=== PATIENT | female | born 1960 | race Caucasian/White ===

== ENCOUNTER 2016-08-29 07:07 | Day surgery (SDC) | payer BC ==
[2016-08-29 09:11] VITALS: TEMP 98.1
[2016-08-29 09:28] VITALS: RESP 20
[2016-08-29 09:48] VITALS: BP 108/69; PULSE 71; O2SAT 99
== END 2016-08-29 09:54 | disposition home or self-care (01) ==
LOC: SURG 07:07
PROVIDERS: ATTEND Internal Medicine Gastroenterology
DX: Z12.11 Encounter for screening for malignant neoplasm of colon (principal); Z80.0 Family history of malignant neoplasm of digestive organs; K57.30 Diverticulosis of large intestine without perforation or abscess without bleeding; K64.8 Other hemorrhoids; K62.1 Rectal polyp
CPT/HCPCS: 45380; 82962; 99001; J2001; J2704

== ENCOUNTER 2017-07-19 13:53 | Outpatient (CLI) | payer BC ==
[2016-08-29 09:48] VITALS: O2SAT 99
== END 2017-07-19 13:54 | disposition home or self-care (01) ==
LOC: CONVCARE 13:53
PROVIDERS: ATTEND Orthopaedic Surgery
DX: M17.0 Bilateral primary osteoarthritis of knee (principal)
CPT/HCPCS: 73564

== ENCOUNTER 2017-09-13 08:00 | Inpatient (IN) | payer BC ==
[2017-09-17] MEDS ORDERED: LACTATED RINGERS 1,000 ML IV ONE (06:00)
[2017-09-17] MEDS: SODIUM CHLORIDE 0.9% FLUSH 10 ML SOL IV PRN (06:20)
[2017-09-17] MEDS: SCOPOLAMINE 1.5MG PATCH TD SCH (06:46)
[2017-09-17] MEDS ORDERED: LACTATED RINGERS 1,000 ML IV SCH (07:00)
[2017-09-17] MEDS ORDERED: SODIUM CHLORIDE 20 ML 20 ML ONE (07:08)
[2017-09-17] MEDS ORDERED: TRANEXAMIC ACID 100 MG/ML SOL ONE (07:10)
[2017-09-17] MEDS ORDERED: MORPHINE SULFATE 0.5 MG/ML SOL ONE (07:26)
[2017-09-17] MEDS ORDERED: ONDANSETRON HCL 4 MG/2 ML SOL ONE (07:26)
[2017-09-17] MEDS ORDERED: DEXAMETHASONE 20 MG/5 ML (4 MG/ML SOL) ONE (07:26)
[2017-09-17] MEDS ORDERED: LIDOCAINE HCL 1% MPF SOL ONE (07:26)
[2017-09-17] MEDS ORDERED: MIDAZOLAM 2 MG/2 ML SOL ONE (07:26)
[2017-09-17] MEDS ORDERED: PROPOFOL 500 MG/50 ML EMU IV ONE ×4 (07:26→10:32)
[2017-09-17] MEDS ORDERED: PHENYLEPHRINE HYDROCHLORIDE 10 MG/ML SOL ONE (07:50)
[2017-09-17] MEDS ORDERED: CEFAZOLIN SODIUM 1 GM PDS IV ONE (08:34)
[2017-09-17] MEDS: BUPIVACAINE HCL 0.25% MPF 10 ML SOL INFIL ONE ×4 (09:26→11:38)
[2017-09-17] MEDS: BUPIVACAINE LIPOSOME 20 ML SUS ONE ×4 (09:26→11:38)
[2017-09-17] MEDS ORDERED: MAGNESIUM HYDROXIDE 30 ML SUS PO PRN (10:21)
[2017-09-17] MEDS ORDERED: ALUMINUM/MAGNESIUM 30 ML SUS PO PRN (10:21)
[2017-09-17] MEDS ORDERED: SODIUM CHLORIDE 0.9% 500 ML 500 ML IV PRN (10:21)
[2017-09-17] MEDS ORDERED: ONDANSETRON HCL 4 MG/2 ML SOL IV PRN (10:21)
[2017-09-17] MEDS ORDERED: FLEET ENEMA PR PRN (10:21)
[2017-09-17] MEDS ORDERED: ACETAMINOPHEN 325 MG PO PRN (10:21)
[2017-09-17] MEDS ORDERED: ONDANSETRON 4 MG ODT BU PRN (10:21)
[2017-09-17] MEDS ORDERED: ZOLPIDEM TARTRATE 5 MG TAB PO PRN (10:21)
[2017-09-17] MEDS ORDERED: BISACODYL 10 MG SUP PR PRN (10:21)
[2017-09-17] MEDS ORDERED: PROPOFOL 10 MG/ML EMU IV ONE ×2 (11:25→11:48)
[2017-09-17] MEDS: DEXTROSE/SALINE 0.45/KCL 20MEQ 1,000 ML/1,000 ML SOL IV SCH ×2 (14:01→21:19)
[2017-09-17] MEDS: SODIUM CHLORIDE 0.9% FLUSH 10 ML SOL IV SCH ×2 (16:00→21:19)
[2017-09-17] MEDS ORDERED: CEFAZOLIN SODIUM 1 GM PDS ONE (16:20)
[2017-09-17] MEDS ORDERED: SODIUM CHLORIDE 0.9% 100 ML 100 ML IV ONE (16:20)
[2017-09-17] MEDS: CEFAZOLIN SODIUM 1 GM PDS 2 GM in SODIUM CHLORIDE 0.9% 100 ML 100 ML IV SCH (16:40)
[2017-09-17] MEDS: GABAPENTIN 300 MG CAP PO SCH (21:18)
[2017-09-17] MEDS: SENNOSIDES A AND B 8.6 MG TAB PO SCH (21:18)
[2017-09-17] MEDS: APAP/OXYCODONE 325/5 TAB PO PRN (21:19)
[2017-09-17] MEDS: NOVOLOG FLEXPEN SC SCH (21:26)
[2017-09-18] MEDS ORDERED: SODIUM CHLORIDE 0.9% 100 ML 100 ML IV ONE (00:17)
[2017-09-18] MEDS ORDERED: CEFAZOLIN SODIUM 1 GM PDS ONE (00:17)
[2017-09-18] MEDS: CEFAZOLIN SODIUM 1 GM PDS 2 GM in SODIUM CHLORIDE 0.9% 100 ML 100 ML IV SCH (00:25)
[2017-09-18] MEDS: SODIUM CHLORIDE 0.9% FLUSH 10 ML SOL IV PRN (00:28)
[2017-09-18] MEDS: DIAZEPAM 5 MG TAB PO PRN (00:38)
[2017-09-18] MEDS: APAP/OXYCODONE 325/5 TAB PO PRN ×5 (04:43→23:02)
[2017-09-18] MEDS: SODIUM CHLORIDE 0.9% FLUSH 10 ML SOL IV SCH ×3 (04:44→18:23)
[2017-09-18] MEDS: NOVOLOG FLEXPEN SC SCH ×4 (06:57→20:58)
[2017-09-18 07:23] LABS: CALCIUM 8.3 mg/dl (8.5-10.1); POTASSIUM 4.2 mMol/L (3.5-5.1)
[2017-09-18] MEDS: ENOXAPARIN 40 MG SOL SC SCH (08:49)
[2017-09-18] MEDS: FLUOXETINE HYDROCHLORIDE 10 MG CAP PO SCH (08:50)
[2017-09-18] MEDS: GABAPENTIN 300 MG CAP PO SCH ×2 (08:55→20:53)
[2017-09-18] MEDS ORDERED: LISINOPRIL 5 MG TAB PO SCH (09:00)
[2017-09-18] MEDS ORDERED: GLYBURIDE 5 MG TAB ONE (10:43)
[2017-09-18] MEDS: GLYBURIDE 5 MG PO SCH (10:46)
[2017-09-18] MEDS: SENNOSIDES A AND B 8.6 MG TAB PO SCH (20:53)
[2017-09-19] MEDS: DIAZEPAM 5 MG TAB PO PRN (01:13)
[2017-09-19] MEDS: LISINOPRIL 5 MG TAB PO SCH ×2 (01:13→09:13)
[2017-09-19] MEDS: SODIUM CHLORIDE 0.9% FLUSH 10 ML SOL IV SCH ×3 (01:56→19:10)
[2017-09-19] MEDS: APAP/OXYCODONE 325/5 TAB PO PRN ×5 (03:42→22:01)
[2017-09-19 07:16] LABS: MEAN CORPUSCULAR HGB CONC 34.7 gm/dl (32.0-36.0)
[2017-09-19 07:18] LABS: ALBUMIN 2.9 gm/dl (3.4-5.0); CALCIUM 8.3 mg/dl (8.5-10.1); POTASSIUM 3.9 mMol/L (3.5-5.1)
[2017-09-19 07:18] LABS: APPEARANCE,URINE Clear; BILIRUBIN,URINE NEGATIVE (NEGATIVE); COLOR,URINE Yellow; GLUCOSE, URINE (UA) 1+ (NEGATIVE); KETONES,URINE 2+ (NEGATIVE); LEUKOCYTE ESTERASE ,URINE TRACE (NEGATIVE); NITRATE,URINE NEGATIVE (NEGATIVE); OCCULT BLOOD,URINE NEGATIVE (NEG-TRACE); UROBILINOGEN,URINE 0.2 (0.2-1.0 EU)
[2017-09-19 07:28] LABS: RBC,URINE NEGATIVE (0-3AV/HPF)
[2017-09-19] MEDS: NOVOLOG FLEXPEN SC SCH ×4 (08:19→22:02)
[2017-09-19] MEDS: GABAPENTIN 300 MG CAP PO SCH ×2 (08:19→22:01)
[2017-09-19] MEDS: FLUOXETINE HYDROCHLORIDE 10 MG CAP PO SCH (08:19)
[2017-09-19] MEDS ORDERED: GLYBURIDE 5 MG TAB ONE (08:22)
[2017-09-19] MEDS: ENOXAPARIN 40 MG SOL SC SCH (08:25)
[2017-09-19] MEDS: GLYBURIDE 5 MG PO SCH (08:25)
[2017-09-19] MEDS: LEVOFLOXACIN 500 MG TAB PO SCH (09:13)
[2017-09-19] MEDS ORDERED: METFORMIN HYDROCHLORIDE 500 MG TAB PO SCH (10:15)
[2017-09-19] MEDS ORDERED: SODIUM CHLORIDE 0.9% 1000ML 1,000 ML IV ONE (12:21)
[2017-09-19] MEDS: SENNOSIDES A AND B 8.6 MG TAB PO SCH (22:01)
[2017-09-20] MEDS: APAP/OXYCODONE 325/5 TAB PO PRN ×6 (01:56→23:24)
[2017-09-20] MEDS: SODIUM CHLORIDE 0.9% FLUSH 10 ML SOL IV SCH ×3 (01:56→17:38)
[2017-09-20] MEDS: DIAZEPAM 5 MG TAB PO PRN (02:50)
[2017-09-20] MEDS: NOVOLOG FLEXPEN SC SCH ×4 (06:15→21:28)
[2017-09-20] MEDS: SCOPOLAMINE 1.5MG PATCH TD SCH (06:15)
[2017-09-20 07:23] LABS: CALCIUM 8.3 mg/dl (8.5-10.1)
[2017-09-20 07:27] LABS: BASOPHILS % (AUTO) 0 % (0-3); EOSINOPHILS % (AUTO) 0 % (0-9); HEMATOCRIT 28 % (35-47); MEAN CORPUSCULAR HGB CONC 32.8 gm/dl (32.0-36.0); MEAN CORPUSCULAR VOLUME 86 fL (81-99); MONOCYTES % (AUTO) 8.9 % (0-12); NEUTROPHILS % (AUTO) 73.5 % (37-80)
[2017-09-20] MEDS ORDERED: METFORMIN HYDROCHLORIDE 500 MG TAB PO SCH (09:00)
[2017-09-20] MEDS: FLUOXETINE HYDROCHLORIDE 10 MG CAP PO SCH (09:26)
[2017-09-20] MEDS: LISINOPRIL 5 MG TAB PO SCH (09:27)
[2017-09-20] MEDS: GABAPENTIN 300 MG CAP PO SCH ×2 (09:27→21:34)
[2017-09-20] MEDS: ENOXAPARIN 40 MG SOL SC SCH (09:28)
[2017-09-20] MEDS: LEVOFLOXACIN 500 MG TAB PO SCH (09:28)
[2017-09-20] MEDS: GLYBURIDE 5 MG TAB PO SCH (09:30)
[2017-09-20] MEDS: METFORMIN HYDROCHLORIDE 500 MG TAB PO SCH (17:37)
[2017-09-20] MEDS: SENNOSIDES A AND B 8.6 MG TAB PO SCH (21:33)
[2017-09-20 23:35] VITALS: TEMP 98.7
[2017-09-21] MEDS: APAP/OXYCODONE 325/5 TAB PO PRN ×3 (04:08→12:51)
[2017-09-21] MEDS: SODIUM CHLORIDE 0.9% FLUSH 10 ML SOL IV SCH (04:09)
[2017-09-21] MEDS: NOVOLOG FLEXPEN SC SCH ×2 (06:40→11:41)
[2017-09-21 07:40] VITALS: BP 145/84; PULSE 88; RESP 12; O2SAT 98
[2017-09-21] MEDS: GLYBURIDE 5 MG TAB PO SCH (08:54)
[2017-09-21] MEDS: ENOXAPARIN 40 MG SOL SC SCH (08:55)
[2017-09-21] MEDS: METFORMIN HYDROCHLORIDE 500 MG TAB PO SCH (08:56)
[2017-09-21] MEDS: LISINOPRIL 5 MG TAB PO SCH (08:57)
[2017-09-21] MEDS: FLUOXETINE HYDROCHLORIDE 10 MG CAP PO SCH (08:57)
[2017-09-21] MEDS: GABAPENTIN 300 MG CAP PO SCH (08:59)
[2017-09-21] MEDS: LEVOFLOXACIN 500 MG TAB PO SCH (09:38)
== END 2017-09-21 14:40 | disposition home or self-care (01) | DRG 302 ==
LOC: ACUTE CARE 09-17 05:34
PROVIDERS: ADMIT Orthopaedic Surgery; ATTEND Orthopaedic Surgery
PROC: 0SRC0J9 Replacement of Right Knee Joint with Synthetic Substitute, Cemented, Open Approach (ICD-10-PCS; 2017-09-17)
PROC: F01ZBZZ Bed Mobility Assessment (ICD-10-PCS; 2017-09-17)
PROC: F01ZCZZ Transfer Assessment (ICD-10-PCS; 2017-09-17)
PROC: 0SRD0J9 Replacement of Left Knee Joint with Synthetic Substitute, Cemented, Open Approach (ICD-10-PCS; principal; 2017-09-17 08:00)
PROC: F02Z1ZZ Dressing Assessment (ICD-10-PCS; 2017-09-18)
PROC: F02Z0ZZ Bathing/Showering Assessment (ICD-10-PCS; 2017-09-18)
DX: M17.0 Bilateral primary osteoarthritis of knee (principal); N39.0 Urinary tract infection, site not specified; E11.9 Type 2 diabetes mellitus without complications; J98.11 Atelectasis; D64.9 Anemia, unspecified; I10 Essential (primary) hypertension; Z96.653 Presence of artificial knee joint, bilateral
CPT/HCPCS: 36415; 71046; 73560; 80048; 80053; 81001; 82962; 85018; 85025; 85027; 85049; 87040; 87088; 94150; 99070; J0690; J1100; J1650; J2250; J2274; J2405; A4450; A6232; A9270-GY; J1815; J2001; J2370; J2704; J3490

== ENCOUNTER 2017-10-29 13:23 | Outpatient (CLI) | payer BC ==
[2017-09-21 09:59] VITALS: O2SAT 98
== END 2017-10-29 13:24 | disposition home or self-care (01) ==
LOC: CONVCARE 13:23
PROVIDERS: ATTEND Orthopaedic Surgery
DX: Z47.1 Aftercare following joint replacement surgery (principal); Z96.653 Presence of artificial knee joint, bilateral
CPT/HCPCS: 73562

== ENCOUNTER 2018-07-01 09:53 | Outpatient (CLI) | payer BC ==
[2017-09-21 09:59] VITALS: O2SAT 98
== END 2018-07-01 09:54 | disposition home or self-care (01) ==
LOC: CONVCARE 09:53
PROVIDERS: ATTEND Orthopaedic Surgery
DX: Z47.1 Aftercare following joint replacement surgery (principal); Z96.653 Presence of artificial knee joint, bilateral
CPT/HCPCS: 73562

== ENCOUNTER 2018-08-03 10:23 | Emergency (ER) | payer BC ==
[2018-08-03] MEDS ORDERED: HYDROMORPHONE HCL 2 MG/ML SOL IV ONE (10:51)
[2018-08-03] MEDS ORDERED: SODIUM CHLORIDE 0.9% 1000ML 1,000 ML IV ONE (10:52)
[2018-08-03 10:55] VITALS: RESP 20; TEMP 96.1
[2018-08-03] MEDS ORDERED: HYDROMORPHONE 1 MG/ML SYRINGE ONE (10:56)
[2018-08-03] MEDS ORDERED: HYDROMORPHONE 1 MG/ML SYRINGE IV ONE (10:59)
[2018-08-03 11:02] LABS: BASOPHILS % (AUTO) 0 % (0-3); EOSINOPHILS % (AUTO) 0 % (0-9); HEMATOCRIT 42 % (35-47); HEMOGLOBIN 13.4 gm/dl (12.0-15.5); LYMPHOCYTES % (AUTO) 3.3 % (10-50); MEAN CORPUSCULAR HEMOGLOBIN 27.1 pg (27.0-32.0); MEAN CORPUSCULAR VOLUME 85 fL (81-99); MONOCYTES % (AUTO) 0.8 % (0-12); NEUTROPHILS % (AUTO) 95.6 % (37-80)
[2018-08-03 11:16] LABS: ALBUMIN 3.8 gm/dl (3.4-5.0); BILIRUBIN,TOTAL 0.6 mg/dl (0.2-1.0); CALCIUM 9.4 mg/dl (8.5-10.1); CARBON DIOXIDE 24.5 mEq/L (21-32); CREATININE 1.22 mg/dl (0.60-1.00); POTASSIUM 4.5 mMol/L (3.5-5.1); TOTAL PROTEIN 7.8 gm/dl (6.4-8.2)
[2018-08-03 11:20] LABS: APPEARANCE,URINE Cloudy; BILIRUBIN,URINE NEGATIVE (NEGATIVE); COLOR,URINE Yellow; GLUCOSE, URINE (UA) 2+ (NEGATIVE); KETONES,URINE 2+ (NEGATIVE); LEUKOCYTE ESTERASE ,URINE 1+ (NEGATIVE); NITRATE,URINE POSITIVE (NEGATIVE); OCCULT BLOOD,URINE 1+ (NEG-TRACE); PH,URINE 5.5; UROBILINOGEN,URINE 0.2 (0.2-1.0 EU)
[2018-08-03] MEDS ORDERED: CEFTRIAXONE 1 GM PDS 1 GM in SODIUM CHLORIDE 0.9% 50 ML 50 ML IV ONE (11:50)
[2018-08-03] MEDS ORDERED: CEFTRIAXONE 1 GM PDS ONE (12:05)
[2018-08-03 12:28] VITALS: O2SAT 92
[2018-08-03 13:39] VITALS: BP 157/82; PULSE 86
[2018-08-03 15:06] LABS: BACTERIA 2+ (< 1+); CRYSTALS NEGATIVE (0-3 AVE/HPF); EPITHELIAL CELLS 0-3 (SQUAMOUS); WBC,URINE 25-30 (0-5AV/HPF)
== END 2018-08-03 13:45 | disposition home or self-care (01) ==
LOC: ED 10:23
DX: N13.2 Hydronephrosis with renal and ureteral calculous obstruction (principal); N39.0 Urinary tract infection, site not specified; E11.9 Type 2 diabetes mellitus without complications
CPT/HCPCS: 36415; 74176; 80053; 81001; 85025; 87077; 87088; 87186; 96365; 96366; 96374; 99070; 99284; 99285; J0696; J1170